=== PATIENT | female | born 1945 | race Caucasian/White ===

== ENCOUNTER → 2016-04-04 | Outpatient (CLI) | payer OTHER, BC | LOC: FIMAGING 15:46 | DX: Z12.31 Encounter for screening mammogram for malignant neoplasm of breast (principal) | CPT/HCPCS: G0202 ==

== ENCOUNTER → 2016-05-26 | Outpatient (CLI) | payer OTHER, BC | LOC: FIMAGING 15:43 | PROVIDERS: ATTEND Internal Medicine | DX: M54.2 Cervicalgia (principal); M50.30 Other cervical disc degeneration, unspecified cervical region; M51.34 Other intervertebral disc degeneration, thoracic region ==

== ENCOUNTER → 2016-10-30 | Outpatient (CLI) | payer OTHER, BC | LOC: FIMAGING 13:54 | PROVIDERS: ATTEND Internal Medicine | DX: Z12.2 Encounter for screening for malignant neoplasm of respiratory organs (principal); R91.1 Solitary pulmonary nodule; J43.9 Emphysema, unspecified ==

== ENCOUNTER → 2017-04-05 | Outpatient (CLI) | payer OTHER, BC | LOC: FIMAGING 13:18 | PROVIDERS: ATTEND Internal Medicine | DX: Z12.31 Encounter for screening mammogram for malignant neoplasm of breast (principal) ==

== ENCOUNTER → 2017-12-25 | Outpatient (CLI) | payer OTHER, BC | LOC: FIMAGING 14:53 | PROVIDERS: ATTEND Internal Medicine | DX: J43.2 Centrilobular emphysema (principal); R91.1 Solitary pulmonary nodule; I25.10 Atherosclerotic heart disease of native coronary artery without angina pectoris; F17.200 Nicotine dependence, unspecified, uncomplicated ==

== ENCOUNTER → 2018-04-09 | Outpatient (CLI) | payer OTHER, BC | LOC: FIMAGING 11:33 | PROVIDERS: ATTEND Internal Medicine | DX: Z12.31 Encounter for screening mammogram for malignant neoplasm of breast (principal) ==